=== PATIENT | male | born 1935 | race Caucasian/White ===

== ENCOUNTER 2021-12-23 14:22 | Emergency (ER) | payer MEDICARE, BC ==
[2021-12-23 15:51] VITALS: BP 179/89
== END 2021-12-23 15:34 | disposition home or self-care (01) ==
LOC: ED 14:22
DX: S09.90XA Unspecified injury of head, initial encounter (principal); S00.83XA Contusion of other part of head, initial encounter; W01.10XA Fall on same level from slipping, tripping and stumbling with subsequent striking against unspecified object, initial encounter; Y92.009 Unspecified place in unspecified non-institutional (private) residence as the place of occurrence of the external cause